=== PATIENT | female | born 1965 | race Caucasian/White ===

== ENCOUNTER → 2023-09-22 17:38 | Outpatient (REF) | payer OTHER, SELFPAY | LOC: RAD 17:38 | PROVIDERS: ATTENDING PHYSICIAN Physician Assistant; FAMILY PHYSICIAN Nurse Practitioner Family | DX: L40.9 Psoriasis, unspecified (principal); L80 Vitiligo; M25.521 Pain in right elbow | CPT/HCPCS: 73070 ==